=== PATIENT | male | born 1940 | race Asian ===

== ENCOUNTER 2023-09-07 16:13 | Emergency (ER) | payer OTHER, BC ==
[2023-09-07 16:38] VITALS: BP 153/76; PULSE 73; RESP 20; TEMP 98.1; BMI 25.9
[2023-09-07] MEDS ORDERED: CEPHALEXIN MONOHYDRATE 500 MG CAPSULE (UD) ONE (19:08)
[2023-09-07] MEDS: CEPHALEXIN MONOHYDRATE 500 MG CAPSULE (UD) PO ONE (19:12)
== END 2023-09-07 19:15 | disposition home or self-care (01) ==
LOC: FER 16:13
DX: S80.11XA Contusion of right lower leg, initial encounter (principal); L08.9 Local infection of the skin and subcutaneous tissue, unspecified; X58.XXXA Exposure to other specified factors, initial encounter
CPT/HCPCS: 73590-TC-RT-FY; 93971-TC; 99284-25